=== PATIENT | male | born 1955 | race Caucasian/White ===

== ENCOUNTER 2024-09-07 13:45 | Outpatient (CLI) | payer MEDICARE, MEDICAID ==
--- NOTE | 2024-09-07 15:01 | VASCULAR REPORT ---
EXAM: VASC VL BIANKA ANKLE/BRACHIAL INDEX CLINICAL HISTORY: Pain Peripheral vascular disease COMPARISON: None TECHNIQUE: Bilateral systolic ankle and brachial pressures are obtained, with ankle pulse volume waveforms and i ndices. FINDINGS: Pressures: Right Left Brachial 106 mmHg 106 mmHg PT 80 mmHg 80 mmHg DP 90 mmHg 84 mmHg BIANKA: Right Left 0.85 0.79 Pulse volume waveforms: Monophasic IMPRESSION: Moderate peripheral arterial disease on the right and left. Monophasic arterial waveforms bilaterally suggestive of underlying peripheral arterial disease. 1.0-1.4: normal 0.91-0.99 borderline 0.9: abnormal (i.e. PAD) 0.4-0.9: insu-ao-lkeawlwl PAD <0.4: suggestive of severe PAD
== END 2024-09-07 23:59 | disposition home or self-care (01) ==
LOC: VAS 13:45
PROVIDERS: ATTEND Surgery
DX: I73.9 Peripheral vascular disease, unspecified (principal)
CPT/HCPCS: 93922